=== PATIENT | male | born 1925 | race Caucasian/White ===

== ENCOUNTER 2016-08-17 10:20 | Emergency (ER) | payer OTHER ==
[~2016-08-17 10:20] MED LIST: BACITRACIN IO; COLACE100 MG PO; LORAZEPAM1 MG PO; MIRALAX EQUIVAL17 GM PO; PROTONIX40 MG PO; SYSTANE ULTRA IO; TAMSULOSIN HCL0.4 MG PO; XALATAN0.005 % OP; [UNRECOGNIZED DRUG - OTHER] IO
--- NOTE | 2016-08-17 11:59 | DIAGNOSTIC IMAGING REPORT ---
PROCEDURE: XR CHEST 1 VIEW INDICATION: CHEST PAIN TECHNIQUE: Portable AP view 11:00 a.m. COMPARISON: Chest 06/22/2016 FINDINGS: Stable heart size. Tortuous thoracic aorta. No central venous congestion. Hyperlucent lungs. Chronic right hemidiaphragm eventration. A healed right posterolateral rib fractures. IMPRESSION: 1. No acute disease, stable exam.
--- NOTE | 2016-08-17 12:45 | DIAGNOSTIC IMAGING REPORT ---
PROCEDURE: CT HEAD WITHOUT CONTRAST INDICATION: MENTAL STATUS CHANGE TECHNIQUE: Axial CT images were acquired through the head. Coronal and sagittal reformations were created. COMPARISON: None. FINDINGS: Head CT dated 05/12/2016 FINDINGS: Moderate diffuse cerebral cortical atrophy. Patchy moderate hypodensity in the periventricular and subcortical white matter. Moderate prominence to the ventricular system. No intracranial hemorrhage or extraaxial fluid collections. Ventricles are normal in size, shape and position. There is no mass, mass effect or midline shift. The szymanski-white matter differentiation is normal. There is no edema. Calcific atherosclerosis of the intracranial internal carotid arteries. The calvarium is intact. The extracranial soft tissues and orbits are normal. There is mucoperiosteal thickening in both maxillary sinuses. IMPRESSION: 1. No CT evidence of acute intracranial process. 2. Age related involutional and white matter changes. All CT scans at this facility use dose modulation, iterative reconstruction, and/or weight-based dosing when appropriate to reduce radiation dose to as low as reasonably achievable.
--- NOTE | 2016-08-17 12:57 | DIAGNOSTIC IMAGING REPORT ---
PROCEDURE: XR ABDOMEN 1 VIEW INDICATION: ABDOMINAL PAIN TECHNIQUE: AP supine and upright views. COMPARISON: Abdominal CT 06/22/2016 FINDINGS: Bowel pattern is normal. Soft tissues and osseous structures are normal. IMPRESSION: 1. Normal abdomen.
--- NOTE | 2016-08-17 15:01 | ED CLINICAL REPORT ---
Clinical Report - Physicians/Mid Levels [facility] [address] [place] [address] 08/17/2016 10:36 Patient: RASHMI FISHER Time Seen: 11:20 Aug 17 2016. Arrived- By ambulance. Historian- patient and EMS personnel. CPT: ER phys charges level 4 plus (#[id number]). EKG interpretation (#[id number]). HISTORY OF PRESENT ILLNESS Chief Complaint: CHEST PAIN. Chief Complaint: CHEST PAIN and (onset about 7am, STATES HE HAD SOME ABD PAIN FIRST, BUT NOW POINTING TO STERNAL AREA FOR LOCATION OF PAIN). At its maximum, severity described as moderate. When seen in the E.D., severity described as mild. Modifying factors. Not worsened by anything. Not relieved by anything. It is described as burning and aching and it is described as located in the epigastric area and substernal area. This started just prior to arrival about 0700 AM and is still present. Onset during light activity. No nausea, vomiting, difficulty breathing or diaphoresis. Similar symptoms previously: None. Recent medical care: Not recently seen/assessed. REVIEW OF SYSTEMS No fever, chills, cough, pedal edema or calf pain. No fainting episodes, headache, sore throat, abdominal pain or black stools. No difficulty with urination, skin rash, enlarged lymph nodes or joint pain. ( pt having some tremors in hands and feet, which family say is not normal for him. 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 All systems otherwise negative, except as recorded above. PAST HISTORY ( Pt has chronic a-fib, but declines meds for it). Anemia. Fall. Cholelithiasis. Pancreatitis. Gastroesophageal Reflux Disease. Vertigo. Dizziness. Prostate Disease. Glaucoma. Hypertension. Immunizations. --10:49 Nadia Bhakta R.N. Aortic Aneurysm. --11:18 Yony, Andia, R.N. ADDITIONAL SURGERIES: Basal cell spots removed. Colonoscopy. Eye surgery. Tonsillectomy. Medications: LORazepam Oral 1 mg. Allergies: NKA. SOCIAL HISTORY Never smoker. ADDITIONAL NOTES The nursing notes have been reviewed. PHYSICAL EXAM Vital Signs: 08/17/2016 10:46 BP: 168/98. HR: 62. RR: 20. O2 saturation: 98%. Appearance: Alert. No acute distress. Eyes: Eyes normal inspection. ENT: Pharynx normal. Neck: Normal inspection. Neck supple. CVS: Normal heart rate and rhythm. Heart sounds normal. Pulses normal. Respiratory: No respiratory distress. Chest pain reproducible with palpation of the costal cartilage and anterior chest wall, with movement of the trunk and with deep breathing. Breath sounds normal. Abdomen: Nontender. Moderate tenderness in the epigastric area. Bowel sounds normal. Back: Normal external inspection. No CVA tenderness. Skin: Skin warm. Normal skin color. No rash. Extremities: Extremities exhibit normal ROM. No calf tenderness. No lower extremity edema. Neuro: Oriented X 3. No motor deficit. No sensory deficit. LABS, X-RAYS, AND EKG EKG: Normal sinus rhythm. Frequent ventricular ectopic beats. Consistent with premature ventricular contractions. Normal P waves. RBBB (with left anterior fascicular block.). Non-specific ST segment / T wave abnormalities. EKG unchanged when compared with prior EKG. The study has been interpreted contemporaneously. The study has been independently viewed by me. The EKG appears to be a good tracing. Chest X-ray: No acute disease. Views: AP (portable). Technique: good. The X-rays were independently viewed by me and interpreted contemporaneously by me. Laboratory Tests: UA-Culture if indicated: (JARROD: 08/17/2016 12:30) ( MsgRcvd 08/17/2016 12:57) Final results Test Result Flag Units (Reference) URINE COLOR YELLOW URINE APPEARANCE CLEAR URINE GLUCOSE NEGATIVE (NEGATIVE) URINE BILIRUBIN NEGATIVE (NEGATIVE) URINE KETONE NEGATIVE (NEGATIVE) URINE SPECIFIC GRAVITY 1.015 (1.010-1.030) URINE PH 7.5 (5.0-8.0) URINE PROTEIN NEGATIVE (NEGATIVE) URINE UROBILINOGEN 0.2 EU/dL (0.2-1.0) URINE NITRITE NEGATIVE (NEGATIVE) URINE BLOOD TRACE-INTACT (NEGATIVE) URINE LEUK ESTERASE NEGATIVE (NEGATIVE) URINE RBC 1-3 rbc/hpf (0-1) URINE WBC NONE SEEN wbc/hpf (0-1) URINE EPITHELIAL CELLS 1-3 EPI/hpf (0-5) URINE BACTERIA NONE SEEN (NONE SEEN) URINE COMMENT CULT NOT INDICATED URINE CULTURES ARE SET-UP BASED ON THE FOLLOWING CRITERIA:POSITIVE NITRITEPOSITIVE LEUKOCYTE ESTERASEGREATER THAN 10 WHITE BLOOD CELLSMODERATE (2+) OR GREATER BACTERIA CBC w Diff: (JARROD: 08/17/2016 11:15) ( Mscvd 08/17/2016 11:28) Final results Test Result Flag Units (Reference) WHITE BLOOD COUNT 4.9 K/uL (4.5-11.5) RED BLOOD COUNT 4.14 L M/uL (4.50-5.90) HEMOGLOBIN 12.8 L gm/dL (13.5-17.5) HEMATOCRIT 39.3 L % (41.0-53.0) MEAN CELL VOLUME 95 fL (80-100) MEAN CORPUSCULAR HGB 31 pg (26-34) MEAN CORPUSCULAR HGB CONC 33 g/dL (31-37) RED CELL DISTRIBUTION WIDTH 13.4 % (11.6-14.8) PLATELET COUNT 271 K/uL (150-400) NEUTROPHIL % 68.3 % (50-75) LYMPH % 21.3 L % (25-40) MONO % 8.6 % (3-14) EOSINOPHIL % 1.4 % (0-4) BASOPHIL % 0.4 % (0-2) CMP: (JARROD: 08/17/2016 11:15) ( MsgRcvd 08/17/2016 12:32) Final results Test Result Flag Units (Reference) GLUCOSE 94 mg/dL (70-110) BUN 16 mg/dL (7-18) CREATININE 1.0 mg/dL (0.6-1.3) Estimated GFR >60 mL/min Estimated GFR- >60 mL/min Note: Persistent reduction over 3 months in eGFR<60 mL/min/1.73 m2 defines CKD. Patients with eGFR values>=60 mL/min/1.73 m2 may also have CKD if evidence ofpersistent proteinuria. Additional information may be foundat www.kidney.org. SODIUM 142 mmol/L (136-145) POTASSIUM 3.9 mmol/L (3.5-5.1) CHLORIDE 107 mmol/L (98-107) CARBON DIOXIDE 29 mmol/L (21-32) CALCIUM 8.6 mg/dL (8.5-10.1) TOTAL PROTEIN 6.6 g/dL (6.4-8.2) ALBUMIN 3.5 g/dL (3.3-5.0) BILIRUBIN, TOTAL 0.7 mg/dL (0.0-1.0) ALKALINE PHOSPHATASE 109 U/L (46-116) AST (SGOT) 23 U/L (15-37) ALT (SGPT) 12 U/L (12-78) MAGNESIUM 2.0 mg/dL (1.8-2.4) CPK 81 U/L (24-260) TROPONIN I <0.05 ng/mL (0.00-1.5) TROPONIN REFERENCE RANGE:<0.1 NEGATIVE0.1-1.5 INDETERMINANT>1.5 POSITIVE THYROID STIMULATING HORMONE 0.320 uIU/mL (0.30-3.74) . PROGRESS AND PROCEDURES Course of Care: Heplock White GI cocktail Patient is stable. Pain appears GI radiating to chest and reproducible on exam. Patient/family counseled. Disposition: Discharged. Condition: stable. CLINICAL IMPRESSION Chest pain of GI origin (due to esophagitis). INSTRUCTIONS No strenuous activity. Rest. Warnings: Further evaluation is necessary. GENERAL WARNINGS: Return or contact your physician immediately if your condition worsens or changes unexpectedly, if not improving as expected, or if other problems arise. Your Current Medications: CONTINUE TAKING THE FOLLOWING MEDICATIONS: LORazepam Oral : 1 mg. Prescription Medications: Zofran (orally disintegrating tablets) 4 mg: take 1 orally every 6 hours as needed for nausea. Dispense ten (10). No refill. carafate 1g ac hs # 40 Prilosec 40 mg po qhs for 10 days. Follow-up: Follow up with your doctor Wednesday in four days. Call for an appointment. Understanding of the discharge instructions verbalized by patient and family. (Electronically signed by Jonn Barker MD 08/18/2016 20:45)
--- NOTE | 2016-08-17 15:01 | ED ORDER SUMMARY ---
..... Patient: RASHMI FISHER OrderSheet [facility] VisitID: [id number] [place] [address] 89y, M Registration Date/Time: 08/17/2016 ORDER SHEET Weight: 59.8 kg (stated) Allergies: NKA GENERAL ORDERS: Chest 1V Urgent (11:08/17/2016 DDean R.N. per protocol) (11:06 NHouse ER Tech1) EKG - ER Stat (11:08/17/2016 DDean R.N. per protocol) (11:03 NHouse ER Tech1) CBC w Diff Urgent (11:08/17/2016 DDean R.N. per protocol) (Ack 11:07 NHouse ER Tech1) (11:15 NHouse ER Tech1) (Cancelled: Other11:33 Brea HARTMAN) CMP Urgent (11:08/17/2016 DDean R.N. per protocol) (Ack 11:07 NHouse ER Tech1) (11:15 NHouse ER Tech1) (Cancelled: Other11:33 Brea HARTMAN) Die Trouble Shooter (Continuous) (11:33 08/17/2016 Brea HARTMAN) (11:35 NHouse ER Tech1) CT Head wo Cont Urgent (11:33 08/17/2016 Brea HARTMAN) (Ack 11:35 NHouse ER Tech1) (12:24 NHouse ER Tech1) Abdomen 1V (supine) Urgent (11:34 08/17/2016 Brea HARTMAN) (Ack 11:35 NHouse ER Tech1) (12:24 NHouse ER Tech1) Cardiac Panel Stat (11:34 08/17/2016 Brea HARTMAN) (Ack 11:35 NHouse ER Tech1) (11:35 NHouse ER Tech1) TSH Urgent (11:08/17/2016 Brea HARTMAN) (Ack 11:35 OHouse ER Tech1) (11:35 OHouse ER Tech1) Pulse oximeter (11:34 08/17/2016 Brea HARTMAN) (11:35 OHouse ER Tech1) UA-Culture if indicated Urgent (12:45 08/17/2016 DDean R.N. per protocol) (12:48 NHouse ER Tech1) MEDICATION ORDERS: GI Cocktail WHITE PO 50 mL (NOW) (11:34 08/17/2016 Brea HARTMAN) (Ack 12:02 DDean R.N.) (14:05 DDean R.N.) IV FLUIDS: Zofran IV 4 mg (NOW) (11:02 08/17/2016 DDean R.N. per protocol) (11:04 DDean R.N.) IV Saline Lock (11:03 08/17/2016 DDean R.N. per protocol) (11:04 DDean R.N.) ORDER SHEET NOTES: [Electronically signed by Nadia Bhakta R.N. (22:31 08/17/2016)] [Electronically signed by Jonn Barker MD (20:45 08/18/2016)] [Electronically locked/signed by Nadia Bhakta R.N. (22:31 08/17/2016)]
--- NOTE | 2016-08-17 15:01 | ED NURSING NOTES ---
Clinical Report - Nurses [facility] [address] [place] [address] 08/17/2016 10:36 Patient: RASHMI FISHER TRIAGE Triage time 1040. Acuity: LEVEL 3. Chief Complaint: CHEST PAIN and (onset about 7am, STATES HE HAD SOME ABD PAIN FIRST, BUT NOW POINTING TO STERNAL AREA FOR LOCATION OF PAIN). 10:40. --10:52 Nadia Bhakta R.N. 10:46 08/17/16. BP: 168/98. HR: 62. RR: 20. O2 saturation: 98% on room air. Pain level now: cannot qualify. Additional comments: "DRIFTING DOWN FROM WHAT IT WAS" . --10:52 Nadia Bhakta R.N. Weight: 59.8 kg stated. Height/Length: 70 inches Estimated. BMI: 18.9. --10:50 Nadia Bhakta R.N. Medications LORazepam Oral 1 mg. --10:51 Nadia Bhakta R.N. Allergies NKA. --10:51 Nadia Bhakta R.N. History Arrived by EMS. Historian: patient. Accompanied by family. Primary physician (Nader). ( Pt has chronic a-fib, but declines meds for it). --10:52 Nadia Bhakta R.N. 10:50. ( pt having some tremors in hands and feet, which family say is not normal for him. 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 --11:17 Nadia Bhakta R.N. PROBLEMS: Anemia. Fall. Cholelithiasis. Pancreatitis. Gastroesophageal Reflux Disease. Vertigo. Dizziness. Prostate Disease. Glaucoma. Hypertension. Immunizations. --10:49 Nadia Bhakta R.N. Aortic Aneurysm. --11:18 Nadia Bhakta R.N. ADDITIONAL SURGERIES: Basal cell spots removed. Colonoscopy. Eye surgery. Tonsillectomy. --10:49 Nadia Bhakta R.N. Interventions ID band on patient. To treatment room. --10:52 Nadia Bhakta R.N. PHYSICAL ASSESSMENT 10:40. To room via stretcher. Patient gowned. GENERAL / NEURO / PSYCH: Alert. ( c/o right sided headache, right arm weakness and left facial droop noted). RESPIRATORY: Respirations not labored. Chest wall tenderness (pt points from abd up to sternal area). CVS: ( has hx of constipaiton). GI / : The patient has had nausea. Abdomen soft. SKIN: Skin is dry. Skin is cool. Skin is non-tender. --11:22 Nadia Bhakta R.N. NURSING PROGRESS NOTES 10:40. Oxygen administered. agriculture mechanic placed on patient; (a-fib). Patient gowned. Head of bed elevated. Patient identifiers checked. Call light placed in reach. Side rails up. Bed placed in lowest position. Patient ready for evaluation- chart flagged. --10:52 Nadia Bhakta R.N. 10:55. EKG time: (1055). EKG was ordered, performed by melida lerma and shown to the ED physician. done by DEVAN Cooper. --10:53 Nadia Bhakta R.N. 10:02 08/17/2016 Site #1 started prior to arrival by EMS via IV in the left hand with an 22g angiocath. Saline lock flushed with saline. --11:02 Nadia Bhakta R.N. 10:50 08/17/2016 Zofran (Ondansetron HCl) IVP 4 mg given over 1 second(s) via site #1. IV patency established. IV site checked: no pain, redness, or swelling. IV flushed thoroughly pre- and post-medication administration. IVP given by RN. --11:04 Nadia Bhakta R.N. 11:00 08/17/16. BP: 170/87. HR: 74. RR: 18. O2 saturation: 98% on nasal cannula at 2 liters/minute. Temp: deferred. Pain level now: cannot qualify. --11:07 Nadia Bhakta R.N. 11:07 08/17/16. Portable chest x-ray ordered, performed and shown to the ED physician. --11:08 Nadia Bhakta R.N. 11:19 08/17/16. Patient ID band checked for patient name and birthdate: patient confirmed. Blood samples drawn by lab per protocol ; labeled in presence of the patient and sent to lab: rainbow set. --11:19 Nadia Bhakta R.N. 11:15 08/17/16. BP: 184/81. HR: 80. RR: 18. O2 saturation: 100%. Temp: deferred. Pain level now: cannot qualify. --11:19 Nadia Bhakta R.N. 11:50 08/17/16. BP: 192/84. HR: 82. RR: 18. O2 saturation: 100% on nasal cannula at 2 liters/minute. Temp: deferred. Pain level now: cannot qualify. --12:07 Nadia Bhakta R.N. 11:58. Patient transported to CT by stretcher with tech. --12:08 Nadia Bhakta R.N. 12:29 08/17/16. BP: 168/84. HR: 74. RR: 18. O2 saturation: 100%. Temp: deferred. Pain level now: cannot qualify. --12:30 Nadia Bhakta R.N. 12:29 08/17/16. Patient returned from CT by stretcher with tech. --12:30 Nadia Bhakta R.NEssence 12:38. Patient ID band checked for patient name and birthdate: patient confirmed. Clean catch urine collected with return of yellow-colored urine; sample sent to lab for urinalysis and culture. Specimen labeled in the presence of the patient. ( assisted pt with urinal, 200cc out UA sent to lab). --12:44 Nadia Bhakta R.N. 12:49 08/17/16. BP: 177/73. HR: 58. RR: 18. O2 saturation: 100%. Temp: deferred. Additional comments: son at bedside. --12:50 Nadia Bhakta R.N. 13:04 08/17/2016 GI cocktail * PO 50 --14:05 Nadia Bhakta R.N. 13:05 08/17/2016 GI cocktail PO Response: (pt vomtied up GI cocktail, states his tongue was on fire, and that it was a" mean trick to do to an old vet"). --14:05 Nadia Bhakta R.N. 13:15 08/17/16. BP: 159/81. HR: 106. RR: 26. O2 saturation: 100%. Temp: deferred. Pain level now: cannot qualify. Additional comments: still c/o tongue pain . --14:06 Nadia Bhakta R.N. 14:06 08/17/16. BP: 151/68. HR: 74. RR: 18. O2 saturation: 100%. Temp: deferred. Pain level now deferred. Additional comments: pt getting aggitated that he is still in hospal "Im laying here just like a log". --14:07 Nadia Bhakta R.N. 14:20. ( assisted with urinal 150cc urine out.). --14:30 Nadia Bhakta R.N. 14:40 08/17/2016 Site #1 removed upon discharge. Pressure dressing applied. --21:07 Nadia Bhakta R.N. DISPOSITION / DISCHARGE Condition at departure: stable. No learning barriers present. Discharge instructions provided and reviewed with the family. Reviewed medication(s) (zofran, carafte, prilosec). Family verbalized understanding. Written instructions provided in Albanian. The patient was discharged home and accompanied by family. He left the Emergency Department in a wheelchair and via private vehicle. Family member driving. --22:30 Nadia Bhakta R.N. 15:00 08/17/16. BP: 156/72. HR: 76. RR: 20. O2 saturation: 100%. Temp: deferred. Pain level now: cannot qualify. --22:30 Nadia Bhakta R.N. Locked/Released at 08/17/2016 22:31 by YonyNadia R.N.
--- NOTE | 2016-08-17 15:01 | ED ORDER SUMMARY ---
..... Patient: RASHMI FISHER OrderSheet [facility] VisitID: [id number] [place] [address] 89y, M Registration Date/Time: 08/17/2016 ORDER SHEET Weight: 59.8 kg (stated) Allergies: NKA GENERAL ORDERS: Chest 1V Urgent (11:08/17/2016 DDean R.N. per protocol) (11:06 NHouse ER Tech1) EKG - ER Stat (11:08/17/2016 DDean R.N. per protocol) (11:03 NHouse ER Tech1) CBC w Diff Urgent (11:08/17/2016 DDean R.N. per protocol) (Ack 11:07 NHouse ER Tech1) (11:15 NHouse ER Tech1) (Cancelled: Other11:33 rBea HARTMAN) CMP Urgent (11:08/17/2016 DDean R.N. per protocol) (Ack 11:07 NHouse ER Tech1) (11:15 NHouse ER Tech1) (Cancelled: Other11:33 Brea HARTMAN) Produce Sorter (Continuous) (11:33 08/17/2016 Brea HARTMAN) (11:35 NHouse ER Tech1) CT Head wo Cont Urgent (11:33 08/17/2016 Brea HARTMAN) (Ack 11:35 NHouse ER Tech1) (12:24 NHouse ER Tech1) Abdomen 1V (supine) Urgent (11:34 08/17/2016 Brea HARTMAN) (Ack 11:35 NHouse ER Tech1) (12:24 NHouse ER Tech1) Cardiac Panel Stat (11:34 08/17/2016 Brea HARTMAN) (Ack 11:35 NHouse ER Tech1) (11:35 NHouse ER Tech1) TSH Urgent (11:08/17/2016 Brea HARTMAN) (Ack 11:35 HIouse ER Tech1) (11:35 HIouse ER Tech1) Pulse oximeter (11:34 08/17/2016 Brea HARTMAN) (11:35 HIouse ER Tech1) UA-Culture if indicated Urgent (12:45 08/17/2016 DDean R.N. per protocol) (12:48 NHouse ER Tech1) MEDICATION ORDERS: GI Cocktail WHITE PO 50 mL (NOW) (11:34 08/17/2016 Brea HARTMAN) (Ack 12:02 DDean R.N.) (14:05 DDean R.N.) IV FLUIDS: Zofran IV 4 mg (NOW) (11:02 08/17/2016 DDean R.N. per protocol) (11:04 DDean R.N.) IV Saline Lock (11:03 08/17/2016 DDean R.N. per protocol) (11:04 DDean R.N.) ORDER SHEET NOTES: [Electronically signed by Nadia Bhakta R.N. (22:31 08/17/2016)] [Electronically signed by Jonn Barker MD (20:45 08/18/2016)] [Electronically locked/signed by Nadia Bhakta R.N. (22:31 08/17/2016)]
--- NOTE | 2016-08-18 20:45 | ED MED RECONCILIATION SUMMARY ---
Patient: RASHMI FISHER Medication Reconciliation Report [facility] VisitID: [id number] [address] [place] [address] 89y, M Registration Date/Time: 08/17/2016 Weight: 59.8 kg Height/Length: 70 in. BMI: 18.9 ALLERGIES: NKA The patient's Home Medications are listed below: CONTINUE TAKING THE FOLLOWING MEDICATIONS: LORazepam Oral 1 mg The source(s) of the original Home Medication information: Not obtained. The following Medications were given to the patient in the Emergency Department: Zofran [IVP] IVP 4 mg, administered: 08/17/2016 10:50:00 AM GI cocktail PO 50, administered: 08/17/2016 1:04:00 PM The following Medications were prescribed to the patient: Zofran (orally disintegrating tablets) 4 mg: take 1 orally every 6 hours as needed for nausea. Dispense ten (10). No refill. -- Jonn Barker MD carafate 1g ac hs # 40Prilosec 40 mg po qhs for 10 days. -- Jonn Barker MD
--- NOTE | 2016-08-18 20:45 | ED DISCHARGE INSTRUCTIONS ---
Patient: RASHMI FISHER General Instructions [facility] VisitID: [id number] [place] [address] 89y, M Registration Date/Time: 08/17/2016 Chest pain of GI origin (due to esophagitis). INSTRUCTIONS No strenuous activity. Rest. Warnings: Further evaluation is necessary. GENERAL WARNINGS: Return or contact your physician immediately if your condition worsens or changes unexpectedly, if not improving as expected, or if other problems arise. Your Current Medications: CONTINUE TAKING THE FOLLOWING MEDICATIONS: LORazepam Oral : 1 mg. Prescription Medications: Zofran (orally disintegrating tablets) 4 mg: take 1 orally every 6 hours as needed for nausea. Dispense ten (10). No refill. carafate 1g ac hs # 40 Prilosec 40 mg po qhs for 10 days. Follow-up: Follow up with your doctor Wednesday in four days. Call for an appointment. Understanding of the discharge instructions verbalized by patient and family. ADDITIONAL INFORMATION GERD (Adult) The esophagus is a tube that carries food from the mouth to the stomach. A valve at the lower end of the esophagus prevents stomach acid from flowing upward. If this valve does not work properly, acid from the stomach enters the esophagus. If this occurs over and over, the acid will injure the lining of the esophagus. This condition is called GERD (gastroesophageal reflux disease) or acid reflux. When stomach acid flows upward into the esophagus, it causes burning, pressure or sharp pain in the upper abdomen or mid to lower chest. The pain can spread to the neck, back, or shoulder, similar to heart pain (angina). There may be belching, an acid taste in the back of the throat, chronic cough, or sore throat or hoarseness. GERD symptoms often occur during the day after a big meal, but it can also occur at night when lying down. Smoking,as well as drinking alcohol, increases the risk of GERD. GERD is a chronic condition. Once it begins, it is often lifelong. Treatment includes changes in eating habits and the use of acid cierra medications to decrease the amount of acid in the stomach. Symptoms often improve with treatment, but if treatment is stopped, the symptoms usually return after a few months. So most persons with GERD will need to continue treatment. Home Care: Take the prescribed acid cierra medication for the full course of treatment even if you begin to feel better sooner. This medication can take up to several days to fully control your symptoms. If you cant afford the prescribed medication, you can try cnaj-wlw-nsxpfay acid blockers, such as Pepcid AC, Tagamet, Zantac, or Aciphex. If these do not relieve your symptoms, a stronger acid-cierra can be tried, such as Prilosec OTC. You can use antacids, such as Tums, Rolaids, Mylanta, or Maalox, for pain. This will be useful the first few days after starting acid blockers when the blockers havent started working yet. Follow the directions on the label. Liquid antacids may work better than tablets. Note that antacids can interfere with absorption of certain medications. Specifically, do not take Tagamet (cimetidine), Zantac (ranitidine), or Carafate (sucralfate) within 1 hour of taking an antacid. Talk with your pharmacist if you have any questions. Limit or avoid fatty, fried, and spicy foods, as well as coffee, chocolate, mint, and foods with high acid content such as tomatoes and citrus fruit and juices (orange, grapefruit, lemon). Avoid alcohol and smoking. Dont eat large meals, especially at night. Frequent, smaller meals are best. Do not lie down right after eating. And dont eat anything 3 hours before going to bed. If you are overweight, losing weight will reduce symptoms. Women should not wear corsets or girdles because this increases pressure on the stomach and worsens reflux. If your symptoms occur during sleep, use a foam wedge to elevate your upper body (not just your head.) Or, place 4" blocks under the head of your bed. Follow Up with your doctor or as advised by our staff. Further testing may be needed. If you do not begin to improve over the next 4 days, contact your doctor. If you had an x-ray, CT scan, or ECG (electrocardiogram), it will be reviewed by a specialist. Youll be notified of any new findings that affect your care. Get Prompt Medical Attention if any of the following occur: Stomach pain gets worse or moves to the lower right abdomen (appendix area) Chest pain appears or gets worse, or spreads to the back, neck, shoulder, or arm Frequent vomiting (cant keep down liquids) Blood in the stool or vomit (red or black in color) Feeling weak or dizzy, fainting, or trouble breathing Fever of 100.4F (38C) or higher, or as directed by your healthcare provider Ondansetron Oral disintegrating tablet What is this medicine? ONDANSETRON (on RAMON se jarad) is used to treat nausea and vomiting caused by chemotherapy. It is also used to prevent or treat nausea and vomiting after surgery. How should I use this medicine? These tablets are made to dissolve in the mouth. Do not try to push the tablet through the foil backing. With dry hands, peel away the foil backing and gently remove the tablet. Place the tablet in the mouth and allow it to dissolve, then swallow. While you may take these tablets with water, it is not necessary to do so. Talk to your international first officer regarding the use of this medicine in children. Special care may be needed. What side effects may I notice from receiving this medicine? Side effects that you should report to your doctor or health personal caregiver as soon as possible: allergic reactions like skin rash, itching or hives, swelling of the face, lips, or tongue breathing problems dizziness fast or irregular heartbeat feeling faint or lightheaded, falls fever and chills swelling of the hands and feet tightness in the chest Side effects that usually do not require medical attention (report to your doctor or health personal caregiver if they continue or are bothersome): constipation or diarrhea headache What may interact with this medicine? Do not take this medicine with any of the following medications: -apomorphine -cisapride -dofetilide -dronedarone -pimozide -thioridazine -ziprasidone This medicine may also interact with the following medications: -carbamazepine -phenytoin -rifampicin -tramadol -other medicines that prolong the QT interval (cause an abnormal heart rhythm) What if I miss a dose? If you miss a dose, take it as soon as you can. If it is almost time for your next dose, take only that dose. Do not take double or extra doses. Where should I keep my medicine? Keep out of the reach of children. Store between 2 and 30 degrees C (36 and 86 degrees F). Throw away any unused medicine after the expiration date. What should I tell my health care provider before I take this medicine? They need to know if you have any of these conditions: heart disease history of irregular heartbeat liver disease low levels of magnesium or potassium in the blood an unusual or allergic reaction to ondansetron, granisetron, other medicines, foods, dyes, or preservatives or trying to get breast-feeding What should I watch for while using this medicine? Check with your doctor or health personal caregiver as soon as you can if you have any sign of an allergic reaction. You have been given the following additional information: GERD (Adult) Ondansetron Oral disintegrating tablet No strenuous activity. Rest. (Electronically signed by Jonn Barker MD 08/18/2016 20:45)
--- NOTE | 2016-08-18 20:45 | ED MED RECONCILIATION SUMMARY ---
Patient: RASHMI FISHER Medication Reconciliation Report [facility] VisitID: [id number] [address] [place] [address] 89y, M Registration Date/Time: 08/17/2016 Weight: 59.8 kg Height/Length: 70 in. BMI: 18.9 ALLERGIES: NKA The patient's Home Medications are listed below: CONTINUE TAKING THE FOLLOWING MEDICATIONS: LORazepam Oral 1 mg The source(s) of the original Home Medication information: Not obtained. The following Medications were given to the patient in the Emergency Department: Zofran [IVP] IVP 4 mg, administered: 08/17/2016 10:50:00 AM GI cocktail PO 50, administered: 08/17/2016 1:04:00 PM The following Medications were prescribed to the patient: Zofran (orally disintegrating tablets) 4 mg: take 1 orally every 6 hours as needed for nausea. Dispense ten (10). No refill. -- Jonn Barker MD carafate 1g ac hs # 40Prilosec 40 mg po qhs for 10 days. -- Jonn Barker MD
--- NOTE | 2016-08-18 20:45 | ED MAR SUMMARY ---
..... Medication Administration Record [facility] [address] [place] [address] Patient: RASHMI FISHER Visit ID: [id number] 89y, M Weight: 59.8 kg Height/Length: 70 in BMI: 18.9 ALLERGIES: NKA Given 10:50 08/17/2016 Nadia Bhakta R.N. Medication Administered: ZOFRAN [IVP] (ONDANSETRON HCL), Dose: 4 mg IVP over 1 second(s), Site: #1 left hand. Medication Ordered: Zofran IV 4 mg (NOW). Given 13:04 08/17/2016 Nadia Bhakta R.N. Medication Administered: GI cocktail *, Dose: 50 * PO. Medication Ordered: GI Cocktail WHITE PO 50 mL (NOW).
--- NOTE | 2016-08-18 20:45 | ED MAR SUMMARY ---
..... Medication Administration Record [address] [place] [address] Patient: RASHMI FISHER Visit ID: [id number] 89y, M Weight: 59.8 kg Height/Length: 70 in BMI: 18.9 ALLERGIES: NKA Given 10:50 08/17/2016 Nadia Bhakta R.N. Medication Administered: ZOFRAN [IVP] (ONDANSETRON HCL), Dose: 4 mg IVP over 1 second(s), Site: #1 left hand. Medication Ordered: Zofran IV 4 mg (NOW). Given 13:04 08/17/2016 Nadia Bhakta R.N. Medication Administered: GI cocktail *, Dose: 50 * PO. Medication Ordered: GI Cocktail WHITE PO 50 mL (NOW).
--- NOTE | 2016-08-18 20:45 | ED DISCHARGE INSTRUCTIONS ---
Patient: RASHMI FISHER General Instructions [facility] VisitID: [id number] [place] [address] 89y, M Registration Date/Time: 08/17/2016 Chest pain of GI origin (due to esophagitis). INSTRUCTIONS No strenuous activity. Rest. Warnings: Further evaluation is necessary. GENERAL WARNINGS: Return or contact your physician immediately if your condition worsens or changes unexpectedly, if not improving as expected, or if other problems arise. Your Current Medications: CONTINUE TAKING THE FOLLOWING MEDICATIONS: LORazepam Oral : 1 mg. Prescription Medications: Zofran (orally disintegrating tablets) 4 mg: take 1 orally every 6 hours as needed for nausea. Dispense ten (10). No refill. carafate 1g ac hs # 40 Prilosec 40 mg po qhs for 10 days. Follow-up: Follow up with your doctor Wednesday in four days. Call for an appointment. Understanding of the discharge instructions verbalized by patient and family. ADDITIONAL INFORMATION GERD (Adult) The esophagus is a tube that carries food from the mouth to the stomach. A valve at the lower end of the esophagus prevents stomach acid from flowing upward. If this valve does not work properly, acid from the stomach enters the esophagus. If this occurs over and over, the acid will injure the lining of the esophagus. This condition is called GERD (gastroesophageal reflux disease) or acid reflux. When stomach acid flows upward into the esophagus, it causes burning, pressure or sharp pain in the upper abdomen or mid to lower chest. The pain can spread to the neck, back, or shoulder, similar to heart pain (angina). There may be belching, an acid taste in the back of the throat, chronic cough, or sore throat or hoarseness. GERD symptoms often occur during the day after a big meal, but it can also occur at night when lying down. Smoking,as well as drinking alcohol, increases the risk of GERD. GERD is a chronic condition. Once it begins, it is often lifelong. Treatment includes changes in eating habits and the use of acid cierra medications to decrease the amount of acid in the stomach. Symptoms often improve with treatment, but if treatment is stopped, the symptoms usually return after a few months. So most persons with GERD will need to continue treatment. Home Care: Take the prescribed acid cierra medication for the full course of treatment even if you begin to feel better sooner. This medication can take up to several days to fully control your symptoms. If you cant afford the prescribed medication, you can try guin-gos-jiiwaeu acid blockers, such as Pepcid AC, Tagamet, Zantac, or Aciphex. If these do not relieve your symptoms, a stronger acid-cierra can be tried, such as Prilosec OTC. You can use antacids, such as Tums, Rolaids, Mylanta, or Maalox, for pain. This will be useful the first few days after starting acid blockers when the blockers havent started working yet. Follow the directions on the label. Liquid antacids may work better than tablets. Note that antacids can interfere with absorption of certain medications. Specifically, do not take Tagamet (cimetidine), Zantac (ranitidine), or Carafate (sucralfate) within 1 hour of taking an antacid. Talk with your pharmacist if you have any questions. Limit or avoid fatty, fried, and spicy foods, as well as coffee, chocolate, mint, and foods with high acid content such as tomatoes and citrus fruit and juices (orange, grapefruit, lemon). Avoid alcohol and smoking. Dont eat large meals, especially at night. Frequent, smaller meals are best. Do not lie down right after eating. And dont eat anything 3 hours before going to bed. If you are overweight, losing weight will reduce symptoms. Women should not wear corsets or girdles because this increases pressure on the stomach and worsens reflux. If your symptoms occur during sleep, use a foam wedge to elevate your upper body (not just your head.) Or, place 4" blocks under the head of your bed. Follow Up with your doctor or as advised by our staff. Further testing may be needed. If you do not begin to improve over the next 4 days, contact your doctor. If you had an x-ray, CT scan, or ECG (electrocardiogram), it will be reviewed by a specialist. Youll be notified of any new findings that affect your care. Get Prompt Medical Attention if any of the following occur: Stomach pain gets worse or moves to the lower right abdomen (appendix area) Chest pain appears or gets worse, or spreads to the back, neck, shoulder, or arm Frequent vomiting (cant keep down liquids) Blood in the stool or vomit (red or black in color) Feeling weak or dizzy, fainting, or trouble breathing Fever of 100.4F (38C) or higher, or as directed by your healthcare provider Ondansetron Oral disintegrating tablet What is this medicine? ONDANSETRON (on RAMON se jarad) is used to treat nausea and vomiting caused by chemotherapy. It is also used to prevent or treat nausea and vomiting after surgery. How should I use this medicine? These tablets are made to dissolve in the mouth. Do not try to push the tablet through the foil backing. With dry hands, peel away the foil backing and gently remove the tablet. Place the tablet in the mouth and allow it to dissolve, then swallow. While you may take these tablets with water, it is not necessary to do so. Talk to your ore smelter regarding the use of this medicine in children. Special care may be needed. What side effects may I notice from receiving this medicine? Side effects that you should report to your doctor or health complex care nurse practitioner as soon as possible: allergic reactions like skin rash, itching or hives, swelling of the face, lips, or tongue breathing problems dizziness fast or irregular heartbeat feeling faint or lightheaded, falls fever and chills swelling of the hands and feet tightness in the chest Side effects that usually do not require medical attention (report to your doctor or health complex care nurse practitioner if they continue or are bothersome): constipation or diarrhea headache What may interact with this medicine? Do not take this medicine with any of the following medications: -apomorphine -cisapride -dofetilide -dronedarone -pimozide -thioridazine -ziprasidone This medicine may also interact with the following medications: -carbamazepine -phenytoin -rifampicin -tramadol -other medicines that prolong the QT interval (cause an abnormal heart rhythm) What if I miss a dose? If you miss a dose, take it as soon as you can. If it is almost time for your next dose, take only that dose. Do not take double or extra doses. Where should I keep my medicine? Keep out of the reach of children. Store between 2 and 30 degrees C (36 and 86 degrees F). Throw away any unused medicine after the expiration date. What should I tell my health care provider before I take this medicine? They need to know if you have any of these conditions: heart disease history of irregular heartbeat liver disease low levels of magnesium or potassium in the blood an unusual or allergic reaction to ondansetron, granisetron, other medicines, foods, dyes, or preservatives or trying to get breast-feeding What should I watch for while using this medicine? Check with your doctor or health complex care nurse practitioner as soon as you can if you have any sign of an allergic reaction. You have been given the following additional information: GERD (Adult) Ondansetron Oral disintegrating tablet No strenuous activity. Rest. (Electronically signed by Jonn Barker MD 08/18/2016 20:45)
== END 2016-08-17 15:00 | disposition home or self-care (01) ==
LOC: ED SRH 10:20
DX: K20.9 Esophagitis, unspecified (principal); R07.2 Precordial pain; R51 Headache; R29.810 Facial weakness; I10 Essential (primary) hypertension; H40.9 Unspecified glaucoma
CPT/HCPCS: 90004; 90074; 90100; 90616; 92610; 92720; 93140; 95059

== ENCOUNTER 2016-10-16 07:55 | Outpatient (CLI) | payer OTHER ==
--- NOTE | 2016-10-16 10:01 | DIAGNOSTIC IMAGING REPORT ---
PROCEDURE: US ABDOMEN ULTRASOUND-COMPLETE INDICATION: ABD PAIN, AAA, DIVERTICULITIS TECHNIQUE: Merida scale and color Doppler sonographic images of the abdomen were obtained. COMPARISON: CT abdomen/pelvis 06/22/2016. FINDINGS: Normal liver (13.9 cm) and spleen. The gallbladder not visualized (CT scan demonstrates bowel anterior to the gallbladder). Normal CBD measures 5.3 mm. Negative Dominique's sign. Normal pancreas. Aorta and IVC are patent. SMA and celiac arteries are visualize without evidence of an aneurysm. Portal vein not well visualized secondary to body habitus. Normal right kidney measures 8.8 cm. Left kidney measures 11.8 cm with a 2.9 cm simple lower pole cyst. IMPRESSION: 1. No evidence of an aneurysm 2. Nonvisualization of the gallbladder 3. 2.9 cm left renal lower pole simple cyst.
--- NOTE | 2016-10-16 10:03 | DIAGNOSTIC IMAGING REPORT ---
PROCEDURE: US COMPLETE PELVIC INDICATION: ABD PAIN, AAA, DIVERTICULITIS TECHNIQUE: Transabdominal szymanski scale and color Doppler sonographic images. COMPARISON: CT abdomen/pelvis 06/22/2016 FINDINGS: Ultrasound of both lower quadrants demonstrates no evidence of mass or free fluid. IMPRESSION: 1. Negative study
== END 2016-10-16 23:00 ==
LOC: US SRH 07:55
DX: R10.9 Unspecified abdominal pain (principal); N28.1 Cyst of kidney, acquired

== ENCOUNTER 2016-10-21 12:03 | Emergency (ER) | payer OTHER ==
--- NOTE | 2016-10-21 15:00 | ED NURSING NOTES ---
Clinical Report - Nurses [facility] [address] [place] [address] 10/21/2016 12:04 Patient: RASHMI FISHER TRIAGE Triage time 12:Oct 21 2016. Acuity: LEVEL 3. Chief Complaint: ABDOMINAL PAIN and NAUSEA. Alert. No acute distress. --12:19 Stephen Joya R.N. 12:14 10/21/16. BP: 138/71. HR: 77. RR: 16. O2 saturation: 100% on room air. Temp: 97.7 F. FLACC pain scale: 4/10. --12:19 Stephen Joya R.N. Weight: 56.6 kg stated. Height/Length: 70 inches Per Patient. BMI: 17.9. --12:13 Stephen Joya R.N. Medications Losartan Potassium Oral. --12:36 Stephen Joya R.N. Sucralfate Oral. --12:36 Stephen Joya R.N. Ondansetron HCl Oral. --12:36 Stephen Joya R.N. Senna Oral. --12:36 Stephen Joya R.N. Tamsulosin HCl Oral. --12:37 Stephen Joya R.N. LORazepam Oral. --12:37 Stephen Joya R.N. Latanoprost Ophthalmic. --12:37 Stephen Joya R.N. Bacitracin Ophthalmic. --12:37 Stephen Joya R.N. Allergies No Known Drug Allergy. --12:17 Stephen Joya R.N. History Arrived by private vehicle. Historian: patient and family. Accompanied by family. Onset. (about a week ago). He has had nausea and abdominal pain. No fever. PAST MEDICAL HX: Peptic ulcer disease. SOCIAL HX: Never smoker. Alcohol use. (quit 20 years ago). No drug use. No infectious disease exposure. ABUSE ASSESSMENT: No report of abuse. FALL RISK ASSESSMENT: Fall risk assessment completed. No fall risk identified. NUTRITIONAL RISK ASSESSMENT: The nutritional risk assessment revealed no deficiencies. FUNCTIONAL ASSESSMENT: Functional assessment: no impairments noted. LEARNING NEEDS ASSESSMENT: The learning needs assessment revealed no barriers. SKIN INTEGRITY ASSESSMENT: Skin integrity risk assessment completed. No skin integrity risk identified. --12:19 Stephen Joya R.N. PROBLEMS: Anxiety Reaction. Nausea. --12:17 Stephen Joya R.N. Interventions ID band on patient. To treatment room. --12:19 Stephen Joya R.N. PHYSICAL ASSESSMENT GENERAL / NEURO / PSYCH: Alert. Appears in pain. The patient is disoriented to situation (Pt is an inaccurate historian; [facility]). RESPIRATORY: Respirations not labored. CVS: Capillary refill less than 2 seconds. GI / : Abdomen soft and nontender. Bowel sounds within normal limits. SKIN: Skin is warm and dry. --12:38 Stephen Joya R.N. NURSING PROGRESS NOTES The plan of care for this patient has been created. Monitoring of patient in place. Patient gowned. Reassurance given. Two patient identifiers checked. Side rails up x 2. Bed placed in lowest position. Patient ready for evaluation- chart flagged and ED physician notified. --12:38 Stephen Joya R.N. 12:41 10/21/2016 Site #1 started via IV in the right upper arm with an 20g angiocath, with aseptic technique and good blood return; one attempt. Blood drawn: rainbow set. Labeled in the presence of the patient and sent to the lab. Saline lock flushed with 10 mL saline. --12:41 Stephen Joya R.N. 13:09 10/21/2016 Started bag #1 1000 mL IV Fluids IV NS (Saline); at 1000 mL/hr over 1 hour(s) via site #1 --13:09 Donna Canchola R.N. 13:10 10/21/2016 Zofran (Ondansetron HCl) IVP 4 mg given over 2 minute(s) via site #1. --13:10 Donna Canchola R.N. 13:10 10/21/2016 GI Cocktail WHITE PO 30 mL (NOW) was refused by patient (Pt,. does not want to drink the medication. education given). Donna Canchola --13:11 Donna Canchola R.N. ( Pt is awake, resting in room on stretcher, denies current needs.). --13:52 Stephen Joya R.N. 14:13 10/21/16. BP: 163/56. HR: 62. RR: 16. O2 saturation: 97%. --14:13 Donna Canchola R.N. ( Pt. reminded of NPO status.). --14:13 Donna Canchola R.N. 14:15 10/21/2016 IV Fluids IV NS Discontinued: bag #1 infused. Total amount infused: 1000 mL. IV patency established. IV site checked: no pain, redness, or swelling. IV flushed thoroughly. --15:30 Stephen Joya R.N. 14:30 10/21/2016 Zofran IVP Response: no adverse reaction. --15:30 Stephen Joya R.N. 14:57 10/21/2016 Ciprofloxacin (Ciprofloxacin) PO 500 mg given. Allergies verified and confirmed 5 rights. --14:57 Stephen Joya R.N. 14:57 10/21/2016 Flagyl (MetroNIDAZOLE) PO 500 mg given. Allergies verified and confirmed 5 rights. --14:57 Stephen Joya R.N. ( Pt allowed to eat. Given water and jello with scheduled medications. Pt tolerted well. Pt is voiding, able to stand at bedside, A/O, cooperative, VSS. Waiting for son's return to ED to take Pt back home.). --15:33 Stephen Joya R.N. 16:16 10/21/2016 Site #1 removed upon discharge. Bandage applied. --16:16 Stephen Joya R.N. Intake & Output Urine: 450 mL, with return of yellow-colored clear urine. --16:19 Stephen Joya R.N. DISPOSITION / DISCHARGE 15:08 10/21/16. BP: 152/69. HR: 80. RR: 16. O2 saturation: 95% on room air. Temp: 98 F. Pain level now: 09/18. --15:08 Stephen Joya R.N. Departure time: 16:Oct 21 2016. Condition at departure: improved and stable. The goals identified in the patient's plan of care were met. No learning barriers present. Discharge instructions provided and reviewed with the patient and family. Reviewed medication(s) side effects, precautions, dosing and course information. Prescription(s) given to the auto hiker. Reviewed referral to a primary care physician. Patient and family verbalized understanding. Written instructions provided in Maori. The patient was discharged by the physician. He was discharged home and accompanied by family. He left the Emergency Department ambulatory and via private vehicle. Family member driving. ( Pt ambulatory, VSS, afebrile, verbalized understanding of POC. Son is Pt's ride home.). --16:17 Stephen Joya R.N. 16:18 10/21/16. BP: 161/69. HR: 72. RR: 16. O2 saturation: 98% on room air. Temp: 98.4 F. FLACC pain scale: 2/10. --16:18 Stephen Joya R.N. Locked/Released at 10/21/2016 16:20 by Stephen Joya R.N.
--- NOTE | 2016-10-21 15:00 | ED ORDER SUMMARY ---
..... Patient: RASHMI FISHER OrderSheet [facility] VisitID: [id number] [address] [place] [address] 89y, M Registration Date/Time: 10/21/2016 ORDER SHEET Weight: 56.6 kg (stated) Allergies: No Known Drug Allergy GENERAL ORDERS: CT Abd/Pel w Cont (No) (N/A) Urgent (12:37 10/21/2016 Jackie Richard) (Ack 12:39 Julio C) (14:09 Julio C) CBC w Diff Urgent (12:38 10/21/2016 Jackie Richard) (Ack 12:39 Julio C) (12:41 MCook R.N.) CMP Urgent (12:38 10/21/2016 Jackie Richard) (Ack 12:39 Julio C) (12:41 MCook R.N.) UA-Culture if indicated Urgent (12:38 10/21/2016 Jackie Richard) (Ack 12:39 Julio C) (14:40 MCook R.N.) PT with INR Urgent (12:38 10/21/2016 Jackie Richard) (Ack 12:39 Julio C) (12:41 MCook R.N.) Lipase Urgent (12:38 10/21/2016 Jackie Richard) (Ack 12:39 Julio C) (12:41 MCook R.N.) Pulse oximeter (12:38 10/21/2016 Jackie Richard) (Ack 12:39 Julio C) (12:41 MCook R.N.) MEDICATION ORDERS: GI Cocktail WHITE PO 30 mL (NOW) (12:38 10/21/2016 Jackie Richard) (Ack 12:59 SStone R.N.) Ciprofloxacin PO 500 mg (NOW) (14:41 10/21/2016 Jackie Richard) (14:57 MCook R.N.) Flagyl PO 500 mg (NOW) (14:41 10/21/2016 Jackie Richard) (14:57 MCook R.N.) IV FLUIDS: IV NS : initial bolus 1000 mL (1000 mL/hr), then none - for X1 (NOW) (12:38 10/21/2016 Jackie Richard) (Ack 12:59 SStone R.N.) (13:09 SStone R.N.) Zofran IV 4 mg (NOW) (12:38 10/21/2016 Jackie Richard) (Ack 12:59 SStone R.N.) (13:10 SStone R.N.) ORDER SHEET NOTES: [Electronically signed by Stephen Joya R.N. (16:20 10/21/2016)] [Electronically signed by Michi Dougherty Dr. (16:41 10/25/2016)] [Electronically locked/signed by Stephen Joya R.N. (16:20 10/21/2016)]
--- NOTE | 2016-10-21 15:00 | ED CLINICAL REPORT ---
Clinical Report - Physicians/Mid Levels [facility] [address] [place] [address] 10/21/2016 12:04 Patient: RASHMI FISHER Arrived- By private vehicle. Historian- patient. HISTORY OF PRESENT ILLNESS Chief Complaint: ABDOMINAL PAIN. At its maximum, severity described as moderate. When seen in the E.D., severity described as moderate. Modifying factors. Not worsened by anything. Not relieved by anything. No radiation. It is described as located in the epigastric area. This started past week. The patient has had nausea. No loss of appetite, vomiting or diarrhea. No additional abdominal pain. No recent travel. Similar symptoms previously: None. Recent medical care: Not recently seen/assessed. REVIEW OF SYSTEMS No constipation, black stools, hematemesis, bloody stools or fever. No chest pain, difficulty breathing or skin rash. All systems otherwise negative, except as recorded above. PAST HISTORY See nurses notes. Medications: Bacitracin Ophthalmic. Latanoprost Ophthalmic. LORazepam Oral. Tamsulosin HCl Oral. Senna Oral. Ondansetron HCl Oral. Sucralfate Oral. Losartan Potassium Oral. Allergies: No Known Drug Allergy. SOCIAL HISTORY Never smoker. Alcohol use. (quit 20 years ago). No drug use. No recent travel. Is a local resident. ADDITIONAL NOTES The nursing notes have been reviewed. PHYSICAL EXAM Vital Signs: 10/21/2016 12:14 BP: 138/71. HR: 77. RR: 16. O2 saturation: 100%. Temp: 97.7 F. FLACC pain scale: 4/10. Blood pressure normal. Oxygen saturation normal. Appearance: Alert. Oriented X3. No acute distress. Eyes: Pupils equal, round and reactive to light. Eyes normal inspection. ENT: Ears normal. Nose normal. Pharynx normal. Neck: Normal inspection. Neck supple. No JVD. CVS: Normal heart rate and rhythm. Heart sounds normal. Pulses normal. Respiratory: No respiratory distress. Breath sounds normal. Chest nontender. No rales, rhonchi or wheezes. Abdomen: Soft and nontender. Bowel sounds normal. No mass. Back: Normal inspection. Skin: Skin warm and dry. Normal skin color. No rash. Normal skin turgor. Extremities: Extremities exhibit normal ROM. No lower extremity edema. Neuro: Oriented X 3. No motor deficit. No sensory deficit. LABS, X-RAYS, AND EKG Abdominal CT: PROCEDURE: CT ABD/PELVIS WITH CONTRAST CLINICAL INDICATION: EPIGASTRIC ABDOMINAL PAIN, initial encounter TECHNIQUE: 125 ml of Isovue 300 were injected intravenously and axial images were obtained of the entire abdomen and pelvis with sagittal and coronal reformations. COMPARISON: Abdominal ultrasound 10/16/[address] abdomen/pelvis 06/22/2016. FINDINGS: ABDOMEN: Mild bibasilar atelectasis with small bilateral pleural effusions. Heart size at the upper limits of normal. Two small calcified gallstones but no inflammatory changes or biliary obstruction.. Liver, pancreas, spleen and right adrenal gland are normal. Stable 1 cm left adrenal mass. 3 cm left renal lower pole cyst. Right renal upper pole scarring. Stable celiac artery aneurysm. Mild atherosclerosis of the aorta. Thickening of the splenic flexure and descending colon with mild adjacent infiltration of the mesenteric fat suggestive of colitis. Nonspecific bowel gas pattern. PELVIS: Severe sigmoid diverticulosis. Enlarged prostate (6 cm). Normal bladder. There is no pelvic mass, inflammatory changes or free fluid. Moderate degenerative changes of the spine. IMPRESSION: 1. Thickened splenic flexure and descending colon with mild adjacent inflammatory changes suggestive of colitis 2. Severe sigmoid diverticulosis 3. 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 Cholelithiasis 6. Mild bibasilar atelectasis with small bilateral pleural effusions. Study type: abdomen and pelvis. Abdominal CT performed with IV contrast and without contrast. The study was independently viewed by me, interpreted by the radiologist and discussed with the radiologist. Laboratory Tests: UA-Culture if indicated: (JARROD: 10/21/2016 13:30) ( MsgRcvd 10/21/2016 14:12) Final results Test Result Flag Units (Reference) URINE COLOR YELLOW URINE APPEARANCE TURBID URINE GLUCOSE NEGATIVE (NEGATIVE) URINE BILIRUBIN NEGATIVE (NEGATIVE) URINE KETONE NEGATIVE (NEGATIVE) URINE SPECIFIC GRAVITY 1.020 (1.010-1.030) URINE PH 7.5 (5.0-8.0) URINE PROTEIN NEGATIVE (NEGATIVE) URINE UROBILINOGEN 0.2 EU/dL (0.2-1.0) URINE NITRITE NEGATIVE (NEGATIVE) URINE BLOOD NEGATIVE (NEGATIVE) URINE LEUK ESTERASE NEGATIVE (NEGATIVE) URINE RBC 3-5 rbc/hpf (0-1) URINE WBC 1-3 wbc/hpf (0-1) URINE EPITHELIAL CELLS 0-1 EPI/hpf (0-5) URINE BACTERIA FEW (1+) (NONE SEEN) URINE COMMENT CULT NOT INDICATED 2+ AMORPHUSURINE CULTURES ARE SET-UP BASED ON THE FOLLOWING CRITERIA:POSITIVE NITRITEPOSITIVE LEUKOCYTE ESTERASEGREATER THAN 10 WHITE BLOOD CELLSMODERATE (2+) OR GREATER BACTERIA CBC w Diff: (JARROD: 10/21/2016 12:30) ( MsgRcvd 10/21/2016 13:26) Final results Test Result Flag Units (Reference) WHITE BLOOD COUNT 5.7 K/uL (4.5-11.5) RED BLOOD COUNT 3.85 L M/uL (4.50-5.90) HEMOGLOBIN 11.9 L gm/dL (13.5-17.5) HEMATOCRIT 35.9 L % (41.0-53.0) MEAN CELL VOLUME 93 fL (80-100) MEAN CORPUSCULAR HGB 31 pg (26-34) MEAN CORPUSCULAR HGB CONC 33 g/dL (31-37) RED CELL DISTRIBUTION WIDTH 14.3 % (11.6-14.8) PLATELET COUNT 261 K/uL (150-400) NEUTROPHIL % 69.4 % (50-75) LYMPH % 16.2 L % (25-40) MONO % 11.5 % (3-14) EOSINOPHIL % 2.3 % (0-4) BASOPHIL % 0.6 % (0-2) PT with INR: (JARROD: 10/21/2016 12:30) ( MsgRcvd 10/21/2016 13:50) Final results Test Result Flag Units (Reference) INR 1.1 (0.8-1.2) Low Intensity Therapy: INR 1.5-2.0 PT range 18.5-23.1Mod.Intensity Therapy: INR 2.0-3.0 PT range 23.1-31.5High Intensity Therapy: INR 2.5-3.5 PT range 27.4-35.5High Intensity Therapy 2: INR 3.0-4.0 PT range 31.5-39.3 CMP: (JARROD: 10/21/2016 12:30) ( MsgRcvd 10/21/2016 13:46) Final results Test Result Flag Units (Reference) GLUCOSE 90 mg/dL (70-110) BUN 12 mg/dL (7-18) CREATININE 1.0 mg/dL (0.6-1.3) Estimated GFR >60 mL/min Estimated GFR- >60 mL/min Note: Persistent reduction over 3 months in eGFR<60 mL/min/1.73 m2 defines CKD. Patients with eGFR values>=60 mL/min/1.73 m2 may also have CKD if evidence ofpersistent proteinuria. Additional information may be foundat www.kidney.org. SODIUM 144 mmol/L (136-145) POTASSIUM 3.5 mmol/L (3.5-5.1) CHLORIDE 108 H mmol/L (98-107) CARBON DIOXIDE 27 mmol/L (21-32) CALCIUM 8.5 mg/dL (8.5-10.1) TOTAL PROTEIN 6.3 L g/dL (6.4-8.2) ALBUMIN 3.2 L g/dL (3.3-5.0) BILIRUBIN, TOTAL 0.6 mg/dL (0.0-1.0) ALKALINE PHOSPHATASE 96 U/L (46-116) AST (SGOT) 19 U/L (15-37) ALT (SGPT) 13 U/L (12-78) LIPASE 154 U/L (73-393) . PROGRESS AND PROCEDURES Course of Care: the patient is a pleasant 89-year-old male with no pertinent past medical history presenting for evaluation of epigastric abdominal pain. At this time differential diagnosis includes hepatitis, biliary colic, acute cholecystitis, and acute pancreatitis. Patient will be evaluated with CT scan of the abdomen and pelvis with contrast. Laboratory studies and CT scan of been ordered. Patient is agreeable to treatment plan. Medications for pain of also been ordered. The patient's workup is noted for findings on CT scan noted above. Had long discussion with patient in regards to management of this disease entity and possible admission to the hospital. Patient reports that he does not want to be admitted at this time and would like to have a trial of outpatient management. Patient is a healthy appearing 89-year-old gentleman and potentiallycould do well at home. Did discuss with patient the risks and benefits of returning home. Patient reports that he'll return immediately for any worsening of symptoms. Strict return precautions were provided. Patient is to return immediately for any worsening. Discussed with patient his workup here in the emergency department as well as diagnosis, home care, follow-up, and return precautions. All questions have been answered. The patient expressed understanding of these instructions and was agreeable to them. Patient is currently declining offers of admission to the hospital. Patientunderstands the risks and benefits. Did not fill can force patient to be admitted to the hospital. patient encouraged to return for any worsening and thatno hard feelings will be had if he does change his mind at any time. Patient is orientated and is thinking and is alert and oriented 4. Disposition: Discharged. Condition: stable. CLINICAL IMPRESSION Acute epigastric abdominal pain. 10/21/2016 14:13 BP: 163/56. HR: 62. RR: 16. O2 saturation: 97%. 10/21/2016 12:14 BP: 138/71. HR: 77. RR: 16. O2 saturation: 100%. Temp: 97.7 F. FLACC pain scale: 4/10. Hypertensive. Oxygen saturation normal. Cholelithiasis. Acute infectious colitis. INSTRUCTIONS Warnings: GENERAL WARNINGS: Return or contact your physician immediately if your condition worsens or changes unexpectedly, if not improving as expected, or if other problems arise. SPECIFICALLY, return if you develop pain, fever, vomiting, the inability to keep fluids down, blood in vomitus, blood in diarrhea, fainting or lightheadedness. Your Current Medications: CONTINUE TAKING THE FOLLOWING MEDICATIONS: Bacitracin Ophthalmic. Latanoprost Ophthalmic. LORazepam Oral. Losartan Potassium Oral. Ondansetron HCl Oral. Senna Oral. Sucralfate Oral. Tamsulosin HCl Oral. Prescription Medications: Cipro 500 mg: take 1 tab orally every 12 hours for 10 days. No refills. Substitution is permissible. Flagyl 500 mg: Take 1 tablet orally every 8 hours for 10 days. No refill. Substitution is permissible Follow-up: Return to the emergency department as needed. Follow up with your doctor in three days. Reason for referral: recheck today's concerns. Summary of care provided to patient via paper. Screening today revealed the patient's blood pressure to be in the normal range. The patient should follow up with a primary care provider for blood pressure management. Understanding of the discharge instructions verbalized by patient. (Electronically signed by Michi Dougherty Dr. 10/25/2016 16:41)
--- NOTE | 2016-10-21 15:00 | ED ORDER SUMMARY ---
..... Patient: RASHMI FISHER OrderSheet [facility] VisitID: [id number] [address] [place] [address] 89y, M Registration Date/Time: 10/21/2016 ORDER SHEET Weight: 56.6 kg (stated) Allergies: No Known Drug Allergy GENERAL ORDERS: CT Abd/Pel w Cont (No) (N/A) Urgent (12:37 10/21/2016 Jackie Richard) (Ack 12:39 Julio C) (14:09 Julio C) CBC w Diff Urgent (12:38 10/21/2016 Jackie Richard) (Ack 12:39 Julio C) (12:41 MCook R.N.) CMP Urgent (12:38 10/21/2016 Jackie Richard) (Ack 12:39 Julio C) (12:41 MCook R.N.) UA-Culture if indicated Urgent (12:38 10/21/2016 Jackie Richard) (Ack 12:39 Julio C) (14:40 MCook R.N.) PT with INR Urgent (12:38 10/21/2016 Jackie Richard) (Ack 12:39 Julio C) (12:41 MCook R.N.) Lipase Urgent (12:38 10/21/2016 Jackie Richard) (Ack 12:39 Julio C) (12:41 MCook R.N.) Pulse oximeter (12:38 10/21/2016 Jackie Richard) (Ack 12:39 Julio C) (12:41 MCook R.N.) MEDICATION ORDERS: GI Cocktail WHITE PO 30 mL (NOW) (12:38 10/21/2016 Jackie Richard) (Ack 12:59 SStone R.N.) Ciprofloxacin PO 500 mg (NOW) (14:41 10/21/2016 Jackie Richard) (14:57 MCook R.N.) Flagyl PO 500 mg (NOW) (14:41 10/21/2016 Jackie Richard) (14:57 MCook R.N.) IV FLUIDS: IV NS : initial bolus 1000 mL (1000 mL/hr), then none - for X1 (NOW) (12:38 10/21/2016 Jackie Richard) (Ack 12:59 SStone R.N.) (13:09 SStone R.N.) Zofran IV 4 mg (NOW) (12:38 10/21/2016 Jackie Richard) (Ack 12:59 SStone R.N.) (13:10 SStone R.N.) ORDER SHEET NOTES: [Electronically signed by Stephen Joya R.N. (16:20 10/21/2016)] [Electronically signed by Michi Dougherty Dr. (16:41 10/25/2016)] [Electronically locked/signed by Stephen Joya R.N. (16:20 10/21/2016)]
--- NOTE | 2016-10-21 15:06 | DIAGNOSTIC IMAGING REPORT ---
PROCEDURE: CT ABD/PELVIS WITH CONTRAST CLINICAL INDICATION: EPIGASTRIC ABDOMINAL PAIN, initial encounter TECHNIQUE: 125 ml of Isovue 300 were injected intravenously and axial images were obtained of the entire abdomen and pelvis with sagittal and coronal reformations. COMPARISON: Abdominal ultrasound 10/16/[address] abdomen/pelvis 06/22/2016. FINDINGS: ABDOMEN: Mild bibasilar atelectasis with small bilateral pleural effusions. Heart size at the upper limits of normal. Two small calcified gallstones but no inflammatory changes or biliary obstruction.. Liver, pancreas, spleen and right adrenal gland are normal. Stable 1 cm left adrenal mass. 3 cm left renal lower pole cyst. Right renal upper pole scarring. Stable celiac artery aneurysm. Mild atherosclerosis of the aorta. Thickening of the splenic flexure and descending colon with mild adjacent infiltration of the mesenteric fat suggestive of colitis. Nonspecific bowel gas pattern. PELVIS: Severe sigmoid diverticulosis. Enlarged prostate (6 cm). Normal bladder. There is no pelvic mass, inflammatory changes or free fluid. Moderate degenerative changes of the spine. IMPRESSION: 1. Thickened splenic flexure and descending colon with mild adjacent inflammatory changes suggestive of colitis 2. Severe sigmoid diverticulosis 3. 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 Cholelithiasis 6. Mild bibasilar atelectasis with small bilateral pleural effusions 7. Results discussed with Dr. Dougherty All CT scans at this facility use dose modulation, iterative reconstruction, and/or weight-based dosing when appropriate to reduce radiation dose to as low as reasonably achievable.
--- NOTE | 2016-10-25 16:41 | ED MED RECONCILIATION SUMMARY ---
Patient: RASHMI FISHER Medication Reconciliation Report [facility] VisitID: [id number] [address] [place] [address] 89y, M Registration Date/Time: 10/21/2016 Weight: 56.6 kg Height/Length: 70 in. BMI: 17.9 ALLERGIES: No Known Drug Allergy The patient's Home Medications are listed below: CONTINUE TAKING THE FOLLOWING MEDICATIONS: Bacitracin Ophthalmic Latanoprost Ophthalmic LORazepam Oral Losartan Potassium Oral Ondansetron HCl Oral Senna Oral Sucralfate Oral Tamsulosin HCl Oral The source(s) of the original Home Medication information: Not obtained. The following Medications were given to the patient in the Emergency Department: IV NS IV Fluids bolus 0, then 1000 mL/hr, administered: 10/21/2016 1:09:00 PM Zofran [IVP] IVP 4 mg, administered: 10/21/2016 1:10:00 PM Ciprofloxacin [PO] PO 500 mg, administered: 10/21/2016 2:57:00 PM Flagyl [PO] PO 500 mg, administered: 10/21/2016 2:57:00 PM The following Medications were prescribed to the patient: Cipro 500 mg: take 1 tab orally every 12 hours for 10 days. No refills. Substitution is permissible. -- Michi Dougherty Dr. Flagyl 500 mg: Take 1 tablet orally every 8 hours for 10 days. No refill. Substitution is permissible -- Michi Dougherty Dr.
--- NOTE | 2016-10-25 16:41 | ED DISCHARGE INSTRUCTIONS ---
Patient: RASHMI FISHER General Instructions [facility] VisitID: [id number] [address] [place] [address] 89y, M Registration Date/Time: 10/21/2016 Acute epigastric abdominal pain. 10/21/2016 14:13 BP: 163/56. HR: 62. RR: 16. O2 saturation: 97%. 10/21/2016 12:14 BP: 138/71. HR: 77. RR: 16. O2 saturation: 100%. Temp: 97.7 F. FLACC pain scale: 4/10. Hypertensive. Oxygen saturation normal. Cholelithiasis. Acute infectious colitis. INSTRUCTIONS Warnings: GENERAL WARNINGS: Return or contact your physician immediately if your condition worsens or changes unexpectedly, if not improving as expected, or if other problems arise. SPECIFICALLY, return if you develop pain, fever, vomiting, the inability to keep fluids down, blood in vomitus, blood in diarrhea, fainting or lightheadedness. Your Current Medications: CONTINUE TAKING THE FOLLOWING MEDICATIONS: Bacitracin Ophthalmic. Latanoprost Ophthalmic. LORazepam Oral. Losartan Potassium Oral. Ondansetron HCl Oral. Senna Oral. Sucralfate Oral. Tamsulosin HCl Oral. Prescription Medications: Cipro 500 mg: take 1 tab orally every 12 hours for 10 days. No refills. Substitution is permissible. Flagyl 500 mg: Take 1 tablet orally every 8 hours for 10 days. No refill. Substitution is permissible Follow-up: Return to the emergency department as needed. Follow up with your doctor in three days. Reason for referral: recheck today's concerns. Summary of care provided to patient via paper. Screening today revealed the patient's blood pressure to be in the normal range. The patient should follow up with a primary care provider for blood pressure management. Understanding of the discharge instructions verbalized by patient. ADDITIONAL INFORMATION Abdominal Pain,Uncertain Cause [Male] Based on your visit today, the exact cause of your abdominalpain is not clear. Your exam and tests do not indicate a dangerous cause at this time. However, the signs of a serious problem may take more time to appear. Although your evaluation was reassuring today, sometimes early in the course of many conditions, exam and lab tests can appear normal. Therefore, it is important for you to watch for any new symptoms or worsening of your condition. Causes It may not be obvious what caused your symptoms. Pay attention to things that do seem to make your symptoms worse or better and discuss this with your doctor when you follow up. Diagnosis The evaluation of abdominal pain in the emergency department may onlyrequire an exam by the doctor or it may include blood, urine or imaging studies, depending on many factors. Sometimes exams and tests can identify a cause but in many cases, a clear cause is not found. Further testing at follow up visits may help to suggest a clear diagnosis. Home Care Rest as much as possible until your next exam. Try to avoid any medications (unless otherwise directed by your doctor), foods, activities, or other factors that you may have contributed to your symptoms. Try to eat foods that you know that you have tolerated well in the past. Certain diets may be recommended for some conditions that cause abdominal pain. However, since the cause of your symptoms may not be clear, discuss your diet more with your primary care provider or specialist for further recommendations. Eating several small meals per day as opposed to 2 or 3 larger meals may help. Monitor closely for anything that may make your symptoms worse or better. Pay close attention to symptoms below that may indicate worsening of your condition. Follow Up and Precautions See your doctoras instructed or sooneror if your symptoms are not improving.In some cases, you may need more testing. When to Seek Medical Attention Contact your doctor or see medical attention ifany of the following occur: Pain is becoming worse You are unable to take your medications due to excessive vomiting Swelling of the abdomen Fever of 100.4F (38C) or higher, or as directed by your health care provider Blood in vomit or bowel movements (dark red or black color) Jaundice (yellow color of eyes and skin) New onset of weakness, dizziness or fainting New onset of chest, arm, back, neck or jaw pain Possible Gallstone With Biliary Colic [Presumed] Your doctor suspects that your abdominal pain is due to spasm of the gallbladder with gallstones. The gallbladder is a small sack under the liver which stores and releases bile. Bile is a fluid that aids in the digestion of fat. A gallstone may form in this sack and block the flow of bile fluid. This can cause mild to severe cramping pain in the mid or right upper abdomen with nausea and vomiting. To be more certain of the diagnosis, you may need to have an ultrasound, CT-scan or other special test. Home Care: Rest in bed and follow a clear liquid diet until feeling better. If pain or nausea medicine was given to help with your symptoms, take these as directed. Fat in your diet makes the gallbladder contract and may cause increased pain. Therefore, avoid fat in your diet over the next two days and follow a low-fat diet after that. If you are overweight, a low fat diet will help you lose weight. Follow Up if a test was already scheduled for you, keep this appointment. Be sure you know how to prepare yourself for the test. Usually, you will be asked not to eat or drink anything for at least 8 hours before the test. Schedule an appointment with your own doctor after your test is complete to discuss the findings. Get Prompt Medical Attention if any of the following occur: Pain gets worse or moves to the right lower abdomen Repeated vomiting Swelling of the abdomen Pain lasts over 6 hours Fever of 100.4 F (38 C) or higher, or as directed by your healthcare provider Weakness, dizziness or fainting Dark urine or light colored stools Yellow color of the skin or eyes Chest, arm, back, neck or jaw pain Ciprofloxacin Hydrochloride Oral tablet What is this medicine? CIPROFLOXACIN (sip anant FLOX a sin) is a quinolone antibiotic. It is used to treat certain kinds of bacterial infections. It will not work for colds, flu, or other viral infections. How should I use this medicine? Take this medicine by mouth with a glass of water. Follow the directions on the prescription label. Take your medicine at regular intervals. Do not take your medicine more often than directed. Take all of your medicine as directed even if you think your are better. Do not skip doses or stop your medicine early. You can take this medicine with food or on an empty stomach. It can be taken with a meal that contains dairy or calcium, but do not take it alone with a dairy product, like milk or yogurt or calcium-fortified juice. A special MedGuide will be given to you by the pharmacist with each prescription and refill. Be sure to read this information carefully each time. Talk to your processing rep regarding the use of this medicine in children. Special care may be needed. What side effects may I notice from receiving this medicine? Side effects that you should report to your doctor or health home child care provider as soon as possible: - allergic reactions like skin rash, itching or hives, swelling of the face, lips, or tongue - breathing problems - confusion, nightmares or hallucinations - feeling faint or lightheaded, falls - irregular heartbeat - joint, muscle or tendon pain or swelling - pain or trouble passing urine -persistent headache with or without blurred vision - redness, blistering, peeling or loosening of the skin, including inside the mouth - seizure - unusual pain, numbness, tingling, or weakness Side effects that usually do not require medical attention (report to your doctor or health home child care provider if they continue or are bothersome): - diarrhea - nausea or stomach upset - white patches or sores in the mouth What may interact with this medicine? Do not take this medicine with any of the following medications: cisapride droperidol terfenadine tizanidine This medicine may also interact with the following medications: antacids caffeine cyclosporin didanosine (ddI) buffered tablets or powder medicines for diabetes medicines for inflammation like ibuprofen, naproxen methotrexate multivitamins omeprazole phenytoin probenecid sucralfate theophylline warfarin What if I miss a dose? If you miss a dose, take it as soon as you can. If it is almost time for your next dose, take only that dose. Do not take double or extra doses. Where should I keep my medicine? Keep out of the reach of children. Store at room temperature below 30 degrees C (86 degrees F). Keep container tightly closed. Throw away any unused medicine after the expiration date. What should I tell my health care provider before I take this medicine? They need to know if you have any of these conditions: -bone problems -cerebral disease -joint problems -irregular heartbeat -kidney disease -liver disease -myasthenia gravis -seizure disorder -tendon problems -an unusual or allergic reaction to ciprofloxacin, other antibiotics or medicines, foods, dyes, or preservatives - or trying to get -breast-feeding What should I watch for while using this medicine? Tell your doctor or health home child care provider if your symptoms do not improve. Do not treat diarrhea with over the counter products. Contact your doctor if you have diarrhea that lasts more than 2 days or if it is severe and watery. You may get drowsy or dizzy. Do not drive, use machinery, or do anything that needs mental alertness until you know how this medicine affects you. Do not stand or sit up quickly, especially if you are an older patient. This reduces the risk of dizzy or fainting spells. This medicine can make you more sensitive to the sun. Keep out of the sun. If you cannot avoid being in the sun, wear protective clothing and use sunscreen. Do not use sun lamps or tanning beds/booths. Avoid antacids, aluminum, calcium, iron, magnesium, and zinc products for 6 hours before and 2 hours after taking a dose of this medicine. Metronidazole Oral tablet What is this medicine? METRONIDAZOLE (me troe NI da zole) is an antiinfective. It is used to treat certain kinds of bacterial and protozoal infections. It will not work for colds, flu, or other viral infections. How should I use this medicine? Take this medicine by mouth with a full glass of water. Follow the directions on the prescription label. Take your medicine at regular intervals. Do not take your medicine more often than directed. Take all of your medicine as directed even if you think you are better. Do not skip doses or stop your medicine early. Talk to your processing rep regarding the use of this medicine in children. Special care may be needed. What side effects may I notice from receiving this medicine? Side effects that you should report to your doctor or health home child care provider as soon as possible: allergic reactions like skin rash or hives, swelling of the face, lips, or tongue confusion, clumsiness difficulty speaking discolored or sore mouth dizziness fever, infection numbness, tingling, pain or weakness in the hands or feet trouble passing urine or change in the amount of urine redness, blistering, peeling or loosening of the skin, including inside the mouth seizures unusually weak or tired vaginal irritation, dryness, or discharge Side effects that usually do not require medical attention (report to your doctor or health home child care provider if they continue or are bothersome): diarrhea headache irritability metallic taste nausea stomach pain or cramps trouble sleeping What may interact with this medicine? Do not take this medicine with any of the following medications: alcohol or any product that contains alcohol amprenavir oral solution cisapride disulfiram dofetilide dronedarone paclitaxel injection pimozide ritonavir oral solution sertraline oral solution sulfamethoxazole-trimethoprim injection thioridazine ziprasidone This medicine may also interact with the following medications: cimetidine lithium other medicines that prolong the QT interval (cause an abnormal heart rhythm) phenobarbital phenytoin warfarin What if I miss a dose? If you miss a dose, take it as soon as you can. If it is almost time for your next dose, take only that dose. Do not take double or extra doses. Where should I keep my medicine? Keep out of the reach of children. Store at room temperature below 25 degrees C (77 degrees F). Protect from light. Keep container tightly closed. Throw away any unused medicine after the expiration date. What should I tell my health care provider before I take this medicine? They need to know if you have any of these conditions: anemia or other blood disorders disease of the nervous system fungal or yeast infection if you drink alcohol containing drinks liver disease seizures an unusual or allergic reaction to metronidazole, or other medicines, foods, dyes, or preservatives or trying to get breast-feeding What should I watch for while using this medicine? Tell your doctor or health home child care provider if your symptoms do not improve or if they get worse. You may get drowsy or dizzy. Do not drive, use machinery, or do anything that needs mental alertness until you know how this medicine affects you. Do not stand or sit up quickly, especially if you are an older patient. This reduces the risk of dizzy or fainting spells. Avoid alcoholic drinks while you are taking this medicine and for three days afterward. Alcohol may make you feel dizzy, sick, or flushed. If you are being treated for a sexually transmitted disease, avoid sexual contact until you have finished your treatment. Your sexual partner may also need treatment. You have been given the following additional information: Abdominal Pain, Unknown Cause, (Male) Biliary Colic With Gallstone (Presumed) Ciprofloxacin Hydrochloride Oral tablet Metronidazole Oral tablet (Electronically signed by Michi Dougherty Dr. 10/25/2016 16:41)
--- NOTE | 2016-10-25 16:41 | ED MED RECONCILIATION SUMMARY ---
Patient: RASHMI FISHER Medication Reconciliation Report [facility] VisitID: [id number] [address] [place] [address] 89y, M Registration Date/Time: 10/21/2016 Weight: 56.6 kg Height/Length: 70 in. BMI: 17.9 ALLERGIES: No Known Drug Allergy The patient's Home Medications are listed below: CONTINUE TAKING THE FOLLOWING MEDICATIONS: Bacitracin Ophthalmic Latanoprost Ophthalmic LORazepam Oral Losartan Potassium Oral Ondansetron HCl Oral Senna Oral Sucralfate Oral Tamsulosin HCl Oral The source(s) of the original Home Medication information: Not obtained. The following Medications were given to the patient in the Emergency Department: IV NS IV Fluids bolus 0, then 1000 mL/hr, administered: 10/21/2016 1:09:00 PM Zofran [IVP] IVP 4 mg, administered: 10/21/2016 1:10:00 PM Ciprofloxacin [PO] PO 500 mg, administered: 10/21/2016 2:57:00 PM Flagyl [PO] PO 500 mg, administered: 10/21/2016 2:57:00 PM The following Medications were prescribed to the patient: Cipro 500 mg: take 1 tab orally every 12 hours for 10 days. No refills. Substitution is permissible. -- Michi Dougherty Dr. Flagyl 500 mg: Take 1 tablet orally every 8 hours for 10 days. No refill. Substitution is permissible -- Michi Dougherty Dr.
--- NOTE | 2016-10-25 16:41 | ED MAR SUMMARY ---
..... Medication Administration Record [facility] [address] [place] [address] Patient: RASHMI FISHER Visit ID: [id number] 89y, M Weight: 56.6 kg Height/Length: 70 in BMI: 17.9 ALLERGIES: No Known Drug Allergy Start 13:09 10/21/2016 Donna Canchola R.N., Stop 14:10/21/2016 Stephen Joya R.N. Medication Administered: IV NS (SALINE), Dose: IV Fluids over 1 hour(s), Rate: 1000 mL/hr, Dispensed: 1000 mL bag, Site: #1 right upper arm. Medication Ordered: IV NS : initial bolus 1000 mL (1000 mL/hr), then none - for X1 (NOW). Given 13:10 10/21/2016 Donna Canchola R.N. Medication Administered: ZOFRAN [IVP] (ONDANSETRON HCL), Dose: 4 mg IVP over 2 minute(s), Site: #1 right upper arm. Medication Ordered: Zofran IV 4 mg (NOW). Given 14:10/21/2016 Stephen Joya R.N. Medication Administered: CIPROFLOXACIN [PO] (CIPROFLOXACIN), Dose: 500 mg PO. Medication Ordered: Ciprofloxacin PO 500 mg (NOW). Given 14:10/21/2016 Stephen Joya R.N. Medication Administered: FLAGYL [PO] (METRONIDAZOLE), Dose: 500 mg PO. Medication Ordered: Flagyl PO 500 mg (NOW).
--- NOTE | 2016-10-25 16:41 | ED MAR SUMMARY ---
..... Medication Administration Record [facility] [address] [place] [address] Patient: RASHMI FISHER Visit ID: [id number] 89y, M Weight: 56.6 kg Height/Length: 70 in BMI: 17.9 ALLERGIES: No Known Drug Allergy Start 13:09 10/21/2016 Donna Canchola R.N., Stop 14:10/21/2016 Stephen Joya R.N. Medication Administered: IV NS (SALINE), Dose: IV Fluids over 1 hour(s), Rate: 1000 mL/hr, Dispensed: 1000 mL bag, Site: #1 right upper arm. Medication Ordered: IV NS : initial bolus 1000 mL (1000 mL/hr), then none - for X1 (NOW). Given 13:10 10/21/2016 Donna Canchola R.N. Medication Administered: ZOFRAN [IVP] (ONDANSETRON HCL), Dose: 4 mg IVP over 2 minute(s), Site: #1 right upper arm. Medication Ordered: Zofran IV 4 mg (NOW). Given 14:10/21/2016 Stephen Joya R.N. Medication Administered: CIPROFLOXACIN [PO] (CIPROFLOXACIN), Dose: 500 mg PO. Medication Ordered: Ciprofloxacin PO 500 mg (NOW). Given 14:10/21/2016 Stephen Joya R.N. Medication Administered: FLAGYL [PO] (METRONIDAZOLE), Dose: 500 mg PO. Medication Ordered: Flagyl PO 500 mg (NOW).
== END 2016-10-21 16:15 | disposition home or self-care (01) ==
LOC: ED SRH 12:03
DX: K80.20 Calculus of gallbladder without cholecystitis without obstruction (principal); A09 Infectious gastroenteritis and colitis, unspecified
CPT/HCPCS: 90004; 90100; 92235; 94060; 95059